=== PATIENT | female | born 1955 | race Caucasian/White ===

== ENCOUNTER 2016-09-20 06:08 | Day surgery (SDC) | payer MEDICARE, BC ==
[~2016-09-20] VITALS: Ht 170.2 cm; Wt 84.1 kg
[~2016-09-20 06:08] MED LIST: CALCIUM 600 +1 EAC3 PO; FISH OIL 1,0001 CA1 PO; MAGNESIUM OXID250 MG PO; MULTIPLE VITAMI1 TA1; OCUVITE TABLET1 TA1 PO; ROBAXIN500 MG PO; VITAMIN B COMPL1 TAB PO; VITAMIN D31000 UNI2 PO; ZINC-220220 MG PO
[2016-09-20 07:16] LABS: HEMATOCRIT 37.8 % (36.0-48.0); HEMOGLOBIN 12.1 g/dL (12-16); MCH 31.2 pg (26.0-34.0); MCV 97.4 fL (80.0-100.0); MEAN PLATELET VOLUME 9.4 fL (7.4-10.4); RBC 3.88 10x6/uL (4.00-5.40); RDW 13.1 % (11.5-14.5); WBC 5.4 10x3/uL (4.8-10.8)
[2016-09-20] MEDS ORDERED: CARBINOXAMINE PO (08:21)
[2016-09-20] MEDS ORDERED: NEXIUM20 MG PO (08:23)
[2016-09-20] MEDS ORDERED: HYDROCODONE-APA1 TAB PO (08:24)
[2016-09-20 08:31] VITALS: BP 117/73; Ht 170.2 cm; Wt 84.1 kg
--- NOTE | 2016-09-20 10:56 | NUR ---
1015 IV DC WITH CATHER TIP INTACT
--- NOTE | 2016-10-28 09:40 | OP ---
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 PROCEDURE: Esophagogastroduodenoscopy with antral and distal esophageal biopsies. SURGEON: Sundeep Kent MD. CARPET CUTTER: None. BLOOD LOSS: Minimal. ANESTHESIA: IV sedation. COMPLICATIONS: None. Reason for the anesthesia staff being present during the procedure includes anxiety regarding the procedure. ENDOSCOPIC COURSE: The patient was conveyed to endoscopy suite electively on 09/20/2016. Last year, on 09/15/2015, the patient underwent an upper endoscopy and it revealed a Hill grade IV esophagogastric junction. The patient underwent an upper and lower endoscopy at that time. I felt that the patient had a probable Weaver's esophagus. Endoscopically, it appeared that the Weaver esophagus was present. The distal esophageal biopsies revealed reflux type mucosa at the esophagogastric junction; however, due to the endoscopic evidence of Weaver esophagus I have elected for surveillance endoscopy today. An IV sedation was induced by the anesthesia staff. A bite block was inserted. A gastroscope was inserted into the mouth. It was advanced easily into the hypopharynx. The esophagus was easily intubated as were the stomach and duodenum. Upon withdrawal, retroflexed and angulus views were obtained. Antral biopsies were obtained. Distal esophageal biopsies were obtained. The endoscope was then withdrawn under direct vision. I will see the patient in my office in 2-3 weeks. I am going to ask her to continue on proton pump inhibitor therapy. Her next surveillance upper endoscopy is in 2 years. TRANSINT:[id number] Voice Confirmation ID: [id number] DOCUMENT ID: [id number] OPERATIVE REPORT [id number] RENETTA HAYDEN ROBERT MD at 0940 CC: TONY DAMON DO [id number] DICTATION DATE: 09/20/16 0936 UNIVERSITY RELATIONS VICE PRESIDENT: 09/20/16 1055 [facility] 09/20/16 [place] [address]
--- NOTE | 2016-10-28 09:40 | HP ---
PATIENT: RENETTA HAYDEN MEDICAL RECORD: [id number] ACCOUNT: [id number] LOCATION:SINDHU : 59 ADMISSION DATE: 09/20/16 HISTORY AND PHYSICAL EXAMINATION CHIEF COMPLAINT: Probable Weaver's esophagus. HISTORY OF PRESENT ILLNESS: The patient underwent an upper endoscopy last year. I felt that the patient had probably Weaver esophagus. There was endoscopic evidence of Weaver esophagus, although biopsies did not reveal Weaver esophagus. I believe that she does have a diagnosis of Weaver esophagus. She is here to undergo surveillance upper endoscopy with biopsies. She had no dysphagia. No odynophagia. Her gastroesophageal reflux is controlled on omeprazole. ALLERGIES: No known drug allergies. HOME MEDICATIONS: Calcium, mag oxide, Robaxin, omeprazole, vitamin D, vitamin B. SOCIAL HISTORY: Nonsmoker. PAST MEDICAL AND SURGICAL HISTORY: Large hiatal hernia, gastroesophageal reflux, arthritis, foot surgery, ankle surgery, history of cholecystectomy. REVIEW OF SYSTEMS: Negative for CVA or seizures. Negative for diabetes or thyroid problems. Negative for renal disease or hepatitis. The review of systems is negative other than as is described above. PHYSICAL EXAMINATION: GENERAL: The patient does not appear acutely ill. She does not appear chronically ill. VITAL SIGNS: Reviewed. HEAD: External ears appear normal. EYES: Extraocular movements are intact. NECK: Trachea is midline. CHEST: No intercostal retractions. PULMONARY: Nonlabored, no stridor. ABDOMEN: No peritonitis with movement. IMPRESSION: Probable Weaver esophagus. PLAN: Will be surveillance upper endoscopy with biopsies. TRANSINT:[id number] Voice Confirmation ID: [id number] DOCUMENT ID: [id number] HISTORY AND PHYSICAL [id number] RENETTA HAYDEN ROBERT MD at 0940 CC: TONY DAMON DO [id number] DICTATION DATE: 09/20/16 0920 HOSE MAKER: 09/20/16 0940 [facility] 09/20/[address] [address]
== END 2016-09-20 10:45 | disposition home or self-care (01) ==
LOC: D.OPS 06:08
PROVIDERS: Anesthesiology
DX: K22.70 Barrett's esophagus without dysplasia (principal); K21.9 Gastro-esophageal reflux disease without esophagitis; M19.90 Unspecified osteoarthritis, unspecified site; Z79.899 Other long term (current) drug therapy

== ENCOUNTER → 2018-06-27 19:32 | Outpatient (CLI) | payer MEDICARE, BC ==
[2016-09-20 08:31] VITALS: BMI 29.0
[~2018-06-27 19:32] MED LIST changes: +CARBINOXAMINE PO; +HYDROCODONE-APA1 TAB PO; +NEXIUM20 MG PO
== END | disposition home or self-care (01) ==
LOC: D.MAMMO 13:15
DX: Z12.31 Encounter for screening mammogram for malignant neoplasm of breast (principal)

== ENCOUNTER 2018-10-30 06:08 | Day surgery (SDC) | payer MEDICARE, BC ==
[~2018-10-30] VITALS: Ht 170.2 cm; Wt 81.8 kg
[2018-10-30 06:49] LABS: HEMOGLOBIN 13.6 g/dL (12-16); MCH 32.5 pg (26.0-34.0); MCHC 33.2 g/dL (31.0-37.0); MCV 97.9 fL (80.0-100.0); MEAN PLATELET VOLUME 9.1 fL (7.4-10.4); RBC 4.19 10x6/uL (4.00-5.40); RDW 13.5 % (11.5-14.5); WBC 6.4 10x3/uL (4.8-10.8)
[2018-10-30] MEDS ORDERED: MAGNESIUM OXID500 MG PO (07:03)
[2018-10-30] MEDS ORDERED: FLUTICASONE PRO16 GM NASAL (07:04)
[2018-10-30 07:11] VITALS: BP 115/74; Ht 170.2 cm; Wt 81.8 kg
--- NOTE | 2018-10-30 11:28 | NUR ---
IV REMOVED INSTRUCTIONS GIVEN AND PT GETTING DRESSED. =
--- NOTE | 2018-10-30 12:07 | HP ---
PATIENT: RENETTA HAYDEN MEDICAL RECORD: [id number] ACCOUNT: [id number] LOCATION:SINDHU : 59 ADMISSION DATE: 10/30/18 PCP: TONY DAMON DO HISTORY AND PHYSICAL EXAMINATION CHIEF COMPLAINT: Weaver's esophagus and history of colon polyps. PAST MEDICAL AND SURGICAL HISTORY: Hiatal hernia, gastroesophageal reflux, arthritis, history of right ankle surgery, history of laparoscopic cholecystectomy. SOCIAL HISTORY: Nonsmoker. She does smoke marijuana. HOME MEDICINES: Please see the nursing list. ALLERGIES: No known drug allergies. PHYSICAL EXAMINATION: GENERAL: The patient does not appear acutely ill. She does not appear chronically ill. VITAL SIGNS: Reviewed. EARS: External ears appear normal. EYES: Extraocular movements are intact. NECK: Trachea is midline. CHEST: No intercostal retractions. PULMONARY: Nonlabored and no stridor. IMPRESSION: 1. History of Weaver's esophagus in need of surveillance upper endoscopy with biopsies. 2. History of colon polyps for surveillance colonoscopy. PLAN: As described above. TRANSINT:[id number] Voice Confirmation ID: [id number] DOCUMENT ID: [id number] PATRICIA KENT MD at 1207 CC: TONY DAMON DO [id number] DICTATION DATE: 10/30/18 0952 CURRICULUM AND ASSESSMENT DIRECTOR: 10/30/[address] [facility] 10/30/[address] [address]
--- NOTE | 2018-10-30 12:07 | OP ---
PATIENT NAME: RENETTA HAYDEN MEDICAL RECORD: [id number] :59 LOCATION:D.OPS ADMISSION DATE: SURGEON: USNDEEP KENT MD DATE OF OPERATION: 10/30/2018 PREOPERATIVE DIAGNOSES: 1. History of Weaver's esophagus, in need of surveillance upper endoscopy with biopsies. 2. History of colon polyps, in need of a surveillance colonoscopy. POSTOPERATIVE DIAGNOSES: 1. History of Weaver's esophagus, in need of surveillance upper endoscopy with biopsies. 2. History of colon polyps, in need of a surveillance colonoscopy. 3. Possible Weaver's esophagus. 4. Possible eosinophilic esophagitis. 5. Moderately-sized hiatal hernia. 6. Two new colorectal polyps. SURGEON: Sundeep Kent MD WHITE [employer]AR SYRUP OPERATOR: None. BLOOD LOSS: Minimal. ANESTHESIA: IV sedation. COMPLICATIONS: None. The risks, possible complications and alternatives to the procedure were explained to the patient. She elects to proceed. ENDOSCOPIC COURSE: The patient was conveyed to the endoscopy suite electively on 10/30/2018. IV sedation was induced by the anesthesia staff. A bite block was inserted. A gastroscope was inserted into the mouth. It was advanced easily into the hypopharynx. The esophagus was easily intubated as were the stomach and duodenum. Upon withdrawal, retroflexed and angulus views were obtained. Antral biopsies were obtained. I then withdrew and distal esophageal biopsies were obtained to rule out Weaver's esophagus. I then continued to withdraw the endoscope and mid esophageal biopsies were obtained to rule out eosinophilic esophagitis. The endoscope was then withdrawn under direct vision. The patient was turned 180 degrees and placed in the Puga position. A digital rectal examination was performed. A colonoscope was inserted through the anus. It was easily advanced to the cecum. The prep was excellent. I slowly withdrew the endoscope. A combination of normal imaging and narrow band imaging were utilized. Two polyps were noted. There was a cecal polyp, which was a 1.0 cm polyp. There was also an ascending colon polyp, which was a 6-mm polyp. Both of these were removed in their entireties utilizing the hot biopsy forceps polypectomy technique. I continued to withdraw the endoscope. The pullback was greater than a 14-minute pullback. A retroflexed view was obtained in the rectum. I then unretroflexed the scope and removed it under direct vision. I will plan to see the patient in my office in 2-3 weeks. I will plan for her next upper endoscopy with biopsies to take place in 2 years. Her next OPERATIVE REPORT [id number] RENETTA HAYDEN surveillance colonoscopy can wait for 5 years. TRANSINT:[id number] Voice Confirmation ID: [id number] DOCUMENT ID: [id number] SUNDEEP KENT MD at 1207 CC: [id number] DICTATION DATE: 10/30/18 1040 POLYETHYLENE COMBINER: 10/30/18 1112 [facility] 10/30/18 [id number] [place] [address]
== END 2018-10-30 11:40 | disposition home or self-care (01) ==
LOC: D.OPS 06:08
PROVIDERS: Anesthesiology; ATTEND Surgery
DX: K44.9 Diaphragmatic hernia without obstruction or gangrene (principal); K31.9 Disease of stomach and duodenum, unspecified; D12.2 Benign neoplasm of ascending colon; D12.0 Benign neoplasm of cecum; Z86.010 Personal history of colon polyps; Z01.812 Encounter for preprocedural laboratory examination

== ENCOUNTER 2020-12-08 08:44 | Day surgery (SDC) | payer MEDICARE, BC ==
[~2020-12-08] VITALS: Ht 170.2 cm; Wt 88.6 kg
--- NOTE | ~2020-12-08 | OP ---
PATIENT NAME: RENETTA HAYDEN MEDICAL RECORD: [id number] :59 LOCATION:D.OPS ADMISSION DATE: SURGEON: SUNDEEP KENT MD DATE OF OPERATION: 12/08/2020 PREOPERATIVE DIAGNOSES: 1. History of Weaver's esophagus in need of surveillance upper endoscopy with biopsies. 2. History of colon polyps in need of surveillance colonoscopy. POSTOPERATIVE DIAGNOSES: 1. History of Weaver's esophagus in need of surveillance upper endoscopy with biopsies. 2. History of colon polyps in need of surveillance colonoscopy. 3. Hiatal hernia. 4. One new right-sided colon polyp, sessile, 5 mm, best seen with narrow band imaging. PROCEDURE: 1. Esophagogastroduodenoscopy with antral and distal esophageal biopsies. 2. Total colonoscopy to cecum. 3. Hot biopsy forceps colonic polypectomy times 1. SURGEON: Sundeep Kent MD MIRROR FRAMER: None. BLOOD LOSS: Minimal. ANESTHESIA: IV sedation. COMPLICATIONS: None. DESCRIPTION OF PROCEDURE: The patient was conveyed to the endoscopy suite electively on 12/08/2020. IV sedation was induced by the anesthesia staff. A bite block was inserted. A gastroscope was inserted into the mouth. It was advanced easily into the hypopharynx. The esophagus was easily intubated as were the stomach and duodenum. Upon withdrawal, retroflexed and angulus views were obtained. Antral biopsies were obtained to rule out H. pylori. Distal esophageal biopsies were obtained to interrogate for Weaver's esophagus. The endoscope was then withdrawn under direct vision. The patient was turned 180 degrees and placed in the Puga position. Digital rectal examination was performed. A colonoscope was inserted through the anus. It was easily advanced to the cecum. The prep was adequate. I intubated the ileum and the distal ileum was normal. I then withdrew back into the colon. I slowly withdrew the endoscope. The pullback was greater than 13-minute pullback. I irrigated and aspirated. I dragged the folds. A combination of normal imaging and narrow band imaging were utilized. One right-sided hot biopsy forceps polypectomy was performed. A retroflexed view was obtained in the rectum. I then unretroflexed the scope and removed it under direct vision. I will see the patient in my office to review the results of the biopsies at about 2 to 3 weeks. I will plan for her next upper and lower surveillance endoscopies to take place in 3 years. OPERATIVE REPORT [id number] RENETTA HAYDEN TRANSINT:[id number] Voice Confirmation ID: [id number] DOCUMENT ID: [id number] SUNDEEP KENT MD CC: TONY DAMON DO [id number] DICTATION DATE: 12/08/20 1315 FISH FRYER: 12/08/20 1651 [facility] 12/08/20 [id number] [place] [id number]
[~2020-12-08 08:44] MED LIST changes: +FLUTICASONE PRO16 GM NASAL; +MAGNESIUM OXID500 MG PO
[2020-12-08 09:12] LABS: BASOPHILS 0.3 % (0-2); EOSINOPHILS 1.1 % (0-7); HEMATOCRIT 39.4 % (36.0-48.0); IMMATURE GRANULOCYTES 0.2 % (0-5); LYMPHOCYTES 19.9 % (15-50); MCH 32.2 pg (26.0-34.0); MCV 97.5 fL (80.0-100.0); MEAN PLATELET VOLUME 8.8 fL (7.4-10.4); MONOCYTES 5.4 % (2-11); NEUTROPHIL ABS# 4.79 10x3/uL (1.56-6.13); NEUTROPHILS 73.1 % (40-80); PLATELET COUNT 279 10x3/uL (130-400); RBC 4.04 10x6/uL (4.00-5.40); RDW 13.5 % (11.5-14.5); WBC 6.5 10x3/uL (4.8-10.8)
[2020-12-08 09:24] LABS: ALBUMIN 3.6 g/dL (3.4-5.0); ALKALINE PHOSPHATASE 66 U/L (30-120); ALT (SGPT) 36 U/L (10-68); BILIRUBIN - TOTAL 0.43 mg/dL (0.2-1.3); CALC OSMOLALITY 286 mosm/kg (275-300); CALCIUM 9.4 mg/dL (8.5-10.1); CHLORIDE - SERUM 107 mmol/L (98-107); CREATININE - SERUM 0.7 mg/dL (0.6-1.3); GLUCOSE 98 mg/dL (74-106); POTASSIUM - SERUM 4.2 mmol/L (3.5-5.1); PROTEIN - SERUM 7.7 g/dL (6.4-8.2); SODIUM 144 mmol/L (136-145); UREA NITROGEN 12 mg/dL (7-18); eGFR NON AFRICAN AMERICAN 90 mL/min (90-120)
[2020-12-08 10:06] VITALS: BP 133/84; Ht 170.2 cm; Wt 88.6 kg
--- NOTE | 2020-12-08 13:19 | HP ---
PATIENT: RENETTA HAYDEN MEDICAL RECORD: [id number] ACCOUNT: [id number] LOCATION:ClaudioPaulaVERA : 59 ADMISSION DATE: 12/08/20 PCP: TONY DAMON DO HISTORY AND PHYSICAL EXAMINATION CHIEF COMPLAINT: Here for endoscopy. HISTORY OF PRESENT ILLNESS: The patient is here for surveillance upper endoscopy due to history of Weaver's esophagus. She is here for surveillance colonoscopy due to history of colon polyps. She has had no melena. No hematochezia. No hematemesis. Her reflux is controlled on a PPI. No dysphagia. No odynophagia. The risks and possible complications and alternatives of the procedure were explained to the patient. She elects to proceed. PAST MEDICAL AND SURGICAL HISTORY: Cholecystectomy, right ankle surgery, fibromyalgia, lumbar spondylosis. SOCIAL HISTORY: Nonsmoker. HOME MEDICINES: Reviewed. ALLERGIES: No known drug allergies. REVIEW OF SYSTEMS: Negative for diabetes or thyroid problems. Negative for CVA or seizures. PHYSICAL EXAMINATION: GENERAL: The patient does not appear acutely ill. She does not appear chronically ill. VITAL SIGNS: Reviewed. EARS: External ears appear normal. EYES: Extraocular movements are intact. NECK: Trachea is midline. CHEST: No intercostal retractions. PULMONARY: Nonlabored. No stridor. IMPRESSION: 1. History of Weaver's esophagus, in need of surveillance. 2. History of colon polyps, in need of surveillance. PLAN: Will be EGD and colonoscopy. TRANSINT:[id number] Voice Confirmation ID: [id number] DOCUMENT ID: [id number] HISTORY AND PHYSICAL [id number] RENETTA HAYDEN ROBERT MD at 1319 CC: TONY DAMON DO [id number] DICTATION DATE: 12/08/20 1221 LIBRARY DIRECTOR: 12/08/20 1246 [facility] [address] [id number]
--- NOTE | 2020-12-08 13:55 | NUR ---
DC INSTRUCTIONS GIVEN TO PT/SPOUSE. STATE UNDERSTANDING. DC'D IV CATH FULLY INTACT. PT/SPOUSE WAITING TO SPEAK TO DR. KENT BEFORE DC.
--- NOTE | 2020-12-08 14:22 | NUR ---
PT LEFT UNIT VIA 141
== END 2020-12-08 14:10 | disposition home or self-care (01) ==
LOC: D.OPS 08:44
PROVIDERS: Anesthesiology; ATTEND Surgery
DX: Z86.010 Personal history of colon polyps (principal); Z87.19 Personal history of other diseases of the digestive system; K44.9 Diaphragmatic hernia without obstruction or gangrene; K63.5 Polyp of colon; K21.9 Gastro-esophageal reflux disease without esophagitis; K57.90 Diverticulosis of intestine, part unspecified, without perforation or abscess without bleeding